=== PATIENT | female | born 1970 | race Two or more races ===

== ENCOUNTER 2017-11-06 17:46 | Emergency (ER) | payer OTHER ==
[~2017-11-06] VITALS: Ht 165.1 cm; Wt 74.8 kg
[~2017-11-06 17:46] MED LIST: GLUCOPHAGE XR500 MG
== END 2017-11-06 21:41 | disposition home or self-care (01) ==
LOC: ER 17:46
DX: R21 Rash and other nonspecific skin eruption (principal); T78.49XA Other allergy, initial encounter

== ENCOUNTER → 2023-07-21 | Emergency (ER) | payer OTHER ==
[~2023-07-21] VITALS: Ht 165.1 cm; Wt 72.6 kg
[~2023-07-21] MED LIST changes: +CRESTOR40 MG PO; +LANTUS SOL100 UNIT/1; +LOSARTAN-HCTZ1 EACH PO; +SYNJARDY 5-5001 EACH PO; +TOPROL XL50 M1 PO; +WEGOVY1 MG/0.5 M SQ
[2023-07-21 03:39] LABS: HEMATOCRIT 47.6 % (36.0-45.00); HEMOGLOBIN 16.4 g/dL (12.0-15.00); MEAN CELL VOLUME 80.5 fL (80.00-100.00); MEAN CORPUSCULAR HEMOGLOBIN 27.8 pg (27.00-32.0); MEAN CORPUSCULAR HGB CONC 34.5 g/dl (32.0-36.0); PLATELET COUNT 294 K/uL (150-450); RED BLOOD COUNT 5.91 M/uL (4.00-6.00)
[2023-07-21 05:55] LABS: URINE APPEARANCE Clear; URINE BILIRRUBIN Negative (NEGATIVE); URINE BLOOD Small; URINE COLOR Yellow; URINE LEUKOCYTE Negative; URINE NITRATE Negative; URINE PROTEIN 30 (NEGATIVE); URINE UROBILINOGEN 0.2 E.U./dl
[2023-07-21 06:01] LABS: URINE BACTERIA 555.6 uL (0.0-1933); URINE EPITHELIAL CELLS 11.4 uL (0.0-38.8); URINE RBC 8.6 uL (0.0-20.8); URINE WBC 46.6 uL (0.0-23.2)
[2023-07-21 06:32] LABS: URINE GLUCOSE >=1000 MG/DL (NEGATIVE)
[2023-07-21 06:37] LABS: CALCIUM 6.7 mg/dL (8.5-10.1); CREATININE SERUM 0.57 mg/dL (0.55-1.02); GFR 111.38; POTASSIUM 3.6 mEq/L (3.5-5.1)
[2023-07-21 10:50] LABS: HEMATOCRIT 45.2 % (36.0-45.00); HEMOGLOBIN 15.4 g/dL (12.0-15.00); MEAN CELL VOLUME 80.7 fL (80.00-100.00); MEAN CORPUSCULAR HEMOGLOBIN 27.6 pg (27.00-32.0); MEAN CORPUSCULAR HGB CONC 34.2 g/dl (32.0-36.0); PLATELET COUNT 279 K/uL (150-450); RED CELL DISTRIBUTION WIDTH 12.9 % (11.5-14.5)
== END | disposition home or self-care (01) ==
LOC: ER 01:49
PROVIDERS: Emergency Medicine; General Practice
DX: R11.10 Vomiting, unspecified (principal); R19.7 Diarrhea, unspecified